=== PATIENT | male | born 1965 | race Caucasian/White ===

== ENCOUNTER 2017-01-05 10:28 | Emergency (ER) | payer OTHER | END 2017-01-05 11:43 | disposition home or self-care (01) | LOC: MADERS 10:28 | DX: S01.511A Laceration without foreign body of lip, initial encounter (principal); I10 Essential (primary) hypertension; V89.2XXA Person injured in unspecified motor-vehicle accident, traffic, initial encounter | CPT/HCPCS: 99283 ==